=== PATIENT | male | born 1980 | race Caucasian/White ===

== ENCOUNTER 2021-11-29 12:30 | Emergency (ER) | payer OTHER ==
[2021-11-29] MEDS ORDERED: Sodium Chloride 0.9% 10 ML Syringe FLUSH PRN (12:57)
[2021-11-29] MEDS ORDERED: fentaNYL 100 MCG/2 ML SDV IVPUSH ONE (12:58)
[2021-11-29] MEDS ORDERED: Ondansetron 4 MG/2 ML SDV IVPUSH ONE (12:58)
[2021-11-29 13:38] LABS: ESTIMATED GFR 85 mL/min (>60)
[2021-11-29] MEDS ORDERED: Ketorolac 30 MG/ML SDV IVPUSH ONE (13:47)
[2021-11-29] MEDS ORDERED: cefTRIAXone 1 GM in Sodium Chloride 0.9% 50 ML IV ONE (16:20)
== END 2021-11-29 17:17 | disposition home or self-care (01) ==
LOC: JP.ED 12:30
DX: R51.9 Headache, unspecified (principal); Z79.899 Other long term (current) drug therapy; Z20.822 Contact with and (suspected) exposure to COVID-19
CPT/HCPCS: 36415; 70450; 80053; 82945; 84157; 85025; 86140; 86618; 86666; 86788; 86789; 87070; 87205; 87635; 89050; 96365; 96375; 99284; J0696; J1885; J2405; J3010; J3490; U0002